=== PATIENT | female | born 1965 | race Caucasian/White ===

== ENCOUNTER 2017-08-03 06:16 | Emergency (ER) | payer BC ==
[2017-08-03 06:23] VITALS: TEMP 97
--- NOTE | 2017-08-03 07:25 | ED ---
General Adult HPI - General Chief complaint: Extremity Injury, Upper Stated complaint: FALL Time Seen by Provider: 08/03/17 07:12 Source: patient, RN notes reviewed Mode of arrival: ambulatory Limitations: no limitations - History of Present Illness Initial comments: 51-year-old female presented to the emergency room today with chief complaint of injury to the right hand that occurred approximately an hour and half ago. Patient states she was getting out of the truck when she tripped falling down onto the right hand. She states that she's had pain around the right MCP joint of the fifth digit. Patient denies any head injury or loss consciousness. States pain is worse with movements. Denies any other complaints currently. Patient denies any recent fever, chills, shortness of breath, chest pain, back pain, abdominal pain, nausea or vomiting, numbness or tingling, headaches or visual changes, or any other complaints. - Related Data Previous Rx's Medication Instructions Recorded Ibuprofen [Motrin] 600 mg PO Q6HR PRN #40 day 08/03/17 Allergies Allergy/AdvReac Type Severity Reaction Status Date / Time morphine Allergy Anaphylaxis Verified 08/03/17 08:13 Review of Systems ROS Statement: Those systems with pertinent positive or pertinent negative responses have been documented in the HPI. ROS Other: All systems not noted in ROS Statement are negative. Past Medical History Past Medical History: No Reported History History of Any Multi-Drug Resistant Organisms: None Reported Past Surgical History: Cholecystectomy Past Psychological History: No Psychological Hx Reported Smoking Status: Never smoker Past Alcohol Use History: None Reported Past Drug Use History: None Reported General Exam - General Exam Comments Initial Comments: General: The patient is awake and alert, in no distress, and does not appear acutely ill. Neck: The neck is supple, there is no tenderness or JVD. Musculoskeletal: Normal appearance of her right hand obvious deformity. Patient shows limited range of motion of the fifth digit due to pain. She is able to fully pronate supinate and flex and extend at the right wrist and right elbow. No bony tenderness in these areas. Mildly tender over the right fifth MCP joint. Sensations intact pulses equal bilaterally 2+. Neurological: A&O x 3. CN II-XII intact, There are no obvious motor or sensory deficits. Coordination appears grossly intact. Speech is normal. Skin: Skin is warm and dry and no rashes or lesions are noted. Psychiatric: Normal mood and affect. Limitations: no limitations Course Vital Signs 08/03/17 06:18 Temperature 97.0 F L Pulse Rate 99 Respiratory 18 Rate Blood Pressure 199/91 O2 Sat by Pulse 100 Oximetry Medical Decision Making - Medical Decision Making Patient's x-ray reviewed is negative for any acute fracture dislocation. Results were discussed with patient. Patient is advised follow-up with employee health. She is right-handed unable to work today due to pain. Patient placed in [place] wrap. Patient advised ice elevate and use ibuprofen for pain. Disposition Clinical Impression: Wrist sprain Disposition: HOME SELF-CARE Condition: Good Instructions: Wrist Sprain (ED) Additional Instructions: Please use medication as discussed. Please follow-up with employee health as discussed. Please return to emergency room if the symptoms increase or worsen or for any other concerns. Prescriptions: Ibuprofen [Motrin] 600 mg PO Q6HR PRN #40 day PRN Reason: Pain Referrals: Nereyda Torres MD [Primary Care Provider] - 1-2 days Time of Disposition: 08:14
--- NOTE | 2017-08-03 08:01 | XR ---
PROCEDURE: FILM RIGHT WRIST PROCEDURE: FILM RIGHT HAND HISTORY: 51-year-old female status post trauma with right upper extremity pain. COMPARISON: None TECHNIQUE: Frontal, lateral, oblique, and scaphoid views of the right wrist and frontal, lateral, and oblique views of the right hand were obtained. FINDINGS: Bony structures are intact. Joint spaces are preserved. Mild soft tissue swelling. IMPRESSION: Mild soft tissue swelling. No evidence of acute fracture or subluxation.
[2017-08-03 08:19] VITALS: BP 148/88; PULSE 88; RESP 16
== END 2017-08-03 08:27 | disposition home or self-care (01) ==
LOC: EC 06:16
DX: S63.501A Unspecified sprain of right wrist, initial encounter (principal); Z88.5 Allergy status to narcotic agent; V68.4XXA Person boarding or alighting a heavy transport vehicle injured in noncollision transport accident, initial encounter
CPT/HCPCS: 99283

== ENCOUNTER → 2017-09-15 | Outpatient (CLI) | payer BC, OTHER ==
--- NOTE | 2017-09-15 15:00 | CT ---
EXAMINATION TYPE: CT wrist RT wo con DATE OF EXAM: 09/15/2017 COMPARISON: NONE HISTORY: Right wrist pain CT DLP: 81.90 mGycm Automated exposure control for dose reduction was used. TECHNIQUE: Axial images 2 mm thick sections. Reconstructed images in the coronal and sagittal plane. Three-D reconstructed images performed separately on the ventricular computer by the technologist are reviewed. FINDINGS: No acute fractures are evident. Soft tissues appear normal. No abnormal collections are evident. Attention is paid to the level of the BB marking the medial ulnar aspect of the distal wrist. No unde rlying mass or abnormality is evident. This area appears to lie just below the pisiform. If soft tissue evaluation would be of benefit, MRI could be performed. This could further evaluate th e triangular fibrocartilage which is in the region of the BB. IMPRESSION: 1. NO ACUTE OR SUBACUTE OSSEOUS ABNORMALITY EVIDENT. 2. BB APPEARS TO LIE NEAR THE LEVEL OF THE TRIANGULAR FIBROCARTILAGE. CONSIDER MRI FOR SOFT TISSUE EV ALUATION.
== END | disposition home or self-care (01) ==
LOC: RADCTMAIN 12:51
PROVIDERS: ATTEND Internal Medicine
DX: M25.531 Pain in right wrist (principal)
CPT/HCPCS: 73200; Q9967

== ENCOUNTER 2019-06-17 06:27 | Emergency (ER) | payer BC ==
[2019-06-17 06:40] VITALS: BP 137/93; PULSE 101; RESP 28; TEMP 97.8
[2019-06-17] MEDS ORDERED: KETOROLAC 30 MG/ML 1 ML VIAL IVP STA (06:44)
[2019-06-17] MEDS ORDERED: ONDANSETRON 4 MG/2 ML VIAL IVP STA (06:44)
[2019-06-17] MEDS ORDERED: SODIUM CHLORIDE 0.9% 1,000 ML IV STA (06:44)
[2019-06-17] MEDS ORDERED: HYDROmorphone 0.5 MG/0.5 ML SYRINGE IVP STA (06:44)
[2019-06-17] MEDS ORDERED: SODIUM CHLORIDE 0.9% 500 ML 500 ML IV STA (06:44)
[2019-06-17 07:09] LABS: Basophils # (A) 0.1 k/uL (0-0.2); Basophils % (A) 1 %; Eosinophils # (A) 0.2 k/uL (0-0.7); Eosinophils % (A) 1 %; HCT 44.7 % (34.0-46.0); HGB 14.2 gm/dL (11.4-16.0); Lymphocytes % (A) 13 %; MCH 25.8 pg (25.0-35.0); MCHC 31.7 g/dL (31.0-37.0); MCV 81.5 fL (80.0-100.0); Mean Platelet Volume 9.5; Monocytes # (A) 0.8 k/uL (0-1.0); Monocytes % (A) 5 %; Neutrophils # (A) 11.9 k/uL (1.3-7.7); Neutrophils % (A) 78 %; Platelet Count 305 k/uL (150-450); RBC 5.49 m/uL (3.80-5.40); RDW 13.8 % (11.5-15.5); WBC 15.2 k/uL (3.8-10.6)
--- NOTE | 2019-06-17 07:16 | ED ---
Abdominal Pain HPI - General Chief Complaint: Abdominal Pain Stated Complaint: Hematuria Time Seen by Provider: 06/17/19 06:37 Source: patient, RN notes reviewed Mode of arrival: ambulatory Limitations: no limitations - History of Present Illness Initial Comments: This is a 53-year-old female presents emergency Department with chief complaint of severe right flank pain. Patient states it woke her up around 2 AM has had constant pain on alleviated with anything at this time. She does admit that she is very nauseated but no vomiting no diarrhea. Patient denies any dysuria but has noted hematuria. He has no history of kidney stones. Patient does admit that she's had a prior cholecystectomy denies fever, chills, chest or shortness of breath. Patient states that she does have an ALLERGY to morphine but has taken other pain meds in the past. Patient offers no other complaints at this time. - Related Data Previous Rx's Medication Instructions Recorded Ibuprofen [Motrin] 600 mg PO Q6HR PRN #40 day 08/03/17 Cephalexin [Keflex] 500 mg PO Q8HR #21 cap 06/17/19 Ibuprofen [Motrin] 600 mg PO Q8HR PRN #30 tab 06/17/19 Ondansetron Odt [Zofran Odt] 4 mg PO Q8HR PRN #10 tab 06/17/19 Phenazopyridine [Pyridium] 200 mg PO TID #6 tablet 06/17/19 Allergies Allergy/AdvReac Type Severity Reaction Status Date / Time morphine Allergy Anaphylaxis Verified 06/17/19 06:40 Review of Systems ROS Statement: Those systems with pertinent positive or pertinent negative responses have been documented in the HPI. ROS Other: All systems not noted in ROS Statement are negative. Past Medical History Past Medical History: No Reported History History of Any Multi-Drug Resistant Organisms: None Reported Past Surgical History: Cholecystectomy Past Psychological History: No Psychological Hx Reported Smoking Status: Never smoker Past Alcohol Use History: None Reported Past Drug Use History: None Reported General Exam Limitations: no limitations General appearance: alert, in no apparent distress, other (Patient appears uncomfortable.) Head exam: Present: atraumatic, normocephalic, normal inspection Eye exam: Present: normal appearance, PERRL, EOMI. Absent: scleral icterus, conjunctival injection, periorbital swelling ENT exam: Present: normal exam, mucous membranes moist Neck exam: Present: normal inspection, full ROM. Absent: tenderness, meningismus, lymphadenopathy Respiratory exam: Present: normal lung sounds bilaterally, other (Patient was tachpneic on triage secondary to pain). Absent: respiratory distress, wheezes, rales, rhonchi, stridor Cardiovascular Exam: Present: regular rate, normal rhythm, normal heart sounds. Absent: systolic murmur, diastolic murmur, rubs, gallop, clicks GI/Abdominal exam: Present: soft, tenderness (Minimal right-sided), normal bowel sounds. Absent: distended, guarding, rebound, rigid Back exam: Present: CVA tenderness (R). Absent: CVA tenderness (L) Neurological exam: Present: alert, oriented X3 Skin exam: Present: warm, dry, intact, normal color. Absent: rash Course Vital Signs 06/17/19 06:37 Temperature 97.8 F Pulse Rate 101 H Respiratory 28 H Rate Blood Pressure 137/93 O2 Sat by Pulse 97 Oximetry Medical Decision Making - Medical Decision Making 53-year-old female presented for right flank pain, hematuria. Labs, urinalysis and CT were obtained. CT does reveal gross hematuria with large amount of WBCs. Patient was given Rocephin emergency from, IV fluids, antiemetics and pain control. Patient states the pain is improved she does not want any further pain meds at this time. CT did not reveal any evidence of kidney stone. Patient may have recently passed a stone causing her symptoms. Patient we discharged on antibiotics, close follow-up and strict return parameters were discussed patient agrees - Lab Data Result diagrams: 06/17/19 06:50 06/17/19 06:50 Lab Results 06/17/19 06/17/19 06/17/19 Range/Units 06:40 06:50 06:50 WBC 15.2 H (3.8-10.6) k/uL RBC 5.49 H (3.80-5.40) m/uL Hgb 14.2 (11.4-16.0) gm/dL Hct 44.7 (34.0-46.0) % MCV 81.5 (80.0-100.0) fL MCH 25.8 (25.0-35.0) pg MCHC 31.7 (31.0-37.0) g/dL RDW 13.8 (11.5-15.5) % Plt Count 305 (150-450) k/uL Neutrophils % 78 % Lymphocytes % 13 % Monocytes % 5 % Eosinophils % 1 % Basophils % 1 % Neutrophils # 11.9 H (1.3-7.7) k/uL Lymphocytes # 2.0 (1.0-4.8) k/uL Monocytes # 0.8 (0-1.0) k/uL Eosinophils # 0.2 (0-0.7) k/uL Basophils # 0.1 (0-0.2) k/uL Sodium 136 L (137-145) mmol/L Potassium 4.5 (3.5-5.1) mmol/L Chloride 103 (98-107) mmol/L Carbon Dioxide 23 (22-30) mmol/L Anion Gap 10 mmol/L BUN 9 (7-17) mg/dL Creatinine 0.59 (0.52-1.04) mg/dL Est GFR (CKD-EPI)AfAm >90 (>60 ml/min/1.73 sqM) Est GFR (CKD-EPI)NonAf >90 (>60 ml/min/1.73 sqM) Glucose 106 H (74-99) mg/dL Calcium 9.8 (8.4-10.2) mg/dL Total Bilirubin 0.7 (0.2-1.3) mg/dL AST 24 (14-36) U/L ALT 13 (4-34) U/L Alkaline Phosphatase 73 (38-126) U/L Total Protein 7.6 (6.3-8.2) g/dL Albumin 4.2 (3.5-5.0) g/dL Amylase 32 (30-110) U/L Lipase 103 (23-300) U/L Urine Color Red Urine Appearance Cloudy H (Clear) Urine pH 5.5 (5.0-8.0) Ur Specific [place] 1.015 (1.001-1.035) Urine Protein 1+ H (Negative) Urine Glucose (UA) Negative (Negative) Urine Ketones Negative (Negative) Urine Blood Large H (Negative) Urine Nitrite Negative (Negative) Urine Bilirubin Negative (Negative) Urine Urobilinogen <2.0 (<2.0) mg/dL Ur Leukocyte Esterase Large H (Negative) Urine RBC >182 H (0-5) /hpf Urine WBC >182 H (0-5) /hpf Urine WBC Clumps Few H (None) /hpf Ur Squamous Epith Cells 4 (0-4) /hpf Urine Bacteria Occasional H (None) /hpf Disposition Clinical Impression: Flank pain, Hematuria, UTI (urinary tract infection) Disposition: HOME SELF-CARE Condition: Stable Instructions (If sedation given, give patient instructions): Urinary Tract Infection in Women (DC) Additional Instructions: Please return to the Emergency Department if symptoms worsen or any other concerns. Prescriptions: Cephalexin [Keflex] 500 mg PO Q8HR #21 cap Ibuprofen [Motrin] 600 mg PO Q8HR PRN #30 tab PRN Reason: Pain Phenazopyridine [Pyridium] 200 mg PO TID #6 tablet Ondansetron Odt [Zofran Odt] 4 mg PO Q8HR PRN #10 tab PRN Reason: Nausea Is patient prescribed a controlled substance at d/c from ED?: No Referrals: Nereyda Torres MD [Primary Care Provider] - 1-2 days Doug Gore MD [STAFF PHYSICIAN] - 1-2 days Time of Disposition: 08:31
[2019-06-17 07:19] LABS: ALT 13 U/L (4-34); African American GFR (CKD) >90 (>60 ml/min/1.73 sqM); Albumin 4.2 g/dL (3.5-5.0); Amylase 32 U/L (30-110); Anion Gap 10 mmol/L; Blood Urea Nitrogen 9 mg/dL (7-17); Calcium 9.8 mg/dL (8.4-10.2); Carbon Dioxide 23 mmol/L (22-30); Chloride 103 mmol/L (98-107); Glucose 106 mg/dL (74-99); Non-African American GFR(CKD) >90 (>60 ml/min/1.73 sqM); Sodium 136 mmol/L (137-145); Total Bilirubin 0.7 mg/dL (0.2-1.3); Total Protein 7.6 g/dL (6.3-8.2)
[2019-06-17 07:41] LABS: Potassium 4.5 mmol/L (3.5-5.1)
[2019-06-17 07:42] LABS: AST 24 U/L (14-36); Alkaline Phosphatase 73 U/L (38-126)
[2019-06-17 07:52] LABS: Appearance,Urine Cloudy (Clear); Bacteria,Urine Occasional /hpf; Bilirubin,Urine Negative (Negative); Blood,Urine Large (Negative); Color,Urine Red; Glucose,Urine (UA) Negative (Negative); Ketones,Urine Negative (Negative); Leukocyte Esterase,Urine Large (Negative); Nitrite,Urine Negative (Negative); PH, Urine 5.5 (5.0-8.0); Protein,Urine 1+ (Negative); RBC,Urine >182 /hpf (0-5); Specific Gravity,Urine 1.015 (1.001-1.035); Squamous Epithelial Cell,Urine 4 /hpf (0-4); Urobilinogen,Urine <2.0 mg/dL (<2.0); WBC,Urine >182 /hpf (0-5)
[2019-06-17] MEDS ORDERED: cefTRIAXone IN SWFI 1,000 MG/10 ML SYRINGE IVP STA (07:53)
--- NOTE | 2019-06-17 08:01 | CT ---
EXAMINATION TYPE: CT abdomen pelvis wo con DATE OF EXAM: 06/17/2019 COMPARISON: Previous study dated 08/06/2013 HISTORY: Right sided flank pain CT DLP: 1064 mGycm Automated exposure control for dose reduction was used. FINDINGS: There is minimal dependent atelectasis in the dependent portion of the lungs. There is no p leural or pericardial fluid. The heart is not enlarged. Within the abdomen, the gallbladder is been removed. Liver and spleen appear normal. Both adrenal glands appear normal. There is no evidence of hydronephrosis or nephrolithiasis. Limited views of the pancreas are normal. There is mild atheromatous calcification of the visualized arterial tree. There is no significant ret roperitoneal, iliac or inguinal adenopathy. There is a 3 cm cyst in the left ovary. The right ovary is normal. There is fibrotic changes within t he uterus. The bladder wall is slightly thickened but it is not distended. There is extensive diverticulosis of the left side of the colon. I do not see radiographic evidence o f diverticulitis. The appendix is normal. Small bowel loops are normal in caliber. There is no free fluid and no free air There is minor facet arthropathy in the lower lumbar facets.. IMPRESSION: 1. NO EVIDENCE OF HYDRONEPHROSIS OR NEPHROLITHIASIS. 2. LEFT OVARIAN CYST. 3. FIBROID UTERUS. 4. THICKENING OF THE BLADDER WALL MAY BE DUE TO LACK OF DISTENTION. PLEASE CORRELATE TO EXCLUDE CYSTI TIS. 5. EXTENSIVE DIVERTICULOSIS OF THE LEFT SIDE OF THE COLON.
[2019-06-17] MEDS ORDERED: ACET/COD 300 MG/30 MG STARTER PACK 6 TAB BTL PO STA (08:28)
[2019-06-17] MEDS ORDERED: PHENAZOPYRIDINE 200 MG TAB PO STA (08:28)
== END 2019-06-17 08:44 | disposition home or self-care (01) ==
LOC: EC 06:27
DX: N39.0 Urinary tract infection, site not specified (principal); R06.82 Tachypnea, not elsewhere classified; Z88.5 Allergy status to narcotic agent; Z90.49 Acquired absence of other specified parts of digestive tract
CPT/HCPCS: 99284; 96374; 96375 ×3; 96361; 36415; 80053; 82150; 83690; 85025; 81001; 74176; J2405; J0696; J1885; J1170

== ENCOUNTER 2019-08-11 02:22 | Emergency (ER) | payer BC ==
[2019-08-11] MEDS ORDERED: IPRATROPIUM-ALBUTEROL 3 ML NEB INHALATION STA (03:05)
[2019-08-11 03:20] LABS: Basophils % (A) 0 %; Eosinophils # (A) 0.1 k/uL (0-0.7); Eosinophils % (A) 1 %; HCT 43.6 % (34.0-46.0); HGB 14.3 gm/dL (11.4-16.0); Lymphocytes # (A) 1.5 k/uL (1.0-4.8); Lymphocytes % (A) 12 %; MCH 26.6 pg (25.0-35.0); MCHC 32.9 g/dL (31.0-37.0); MCV 80.8 fL (80.0-100.0); Mean Platelet Volume 9.1; Monocytes # (A) 0.6 k/uL (0-1.0); Monocytes % (A) 4 %; Neutrophils # (A) 10.5 k/uL (1.3-7.7); Neutrophils % (A) 81 %; Platelet Count 323 k/uL (150-450); RBC 5.39 m/uL (3.80-5.40); RDW 13.4 % (11.5-15.5)
[2019-08-11 03:39] LABS: D-Dimer 0.35 mg/L FEU (<0.60); INR 0.9 (<1.2); Partial Thromboplastin Time 24.9 sec (22.0-30.0); Prothrombin Time 9.4 sec (9.0-12.0)
[2019-08-11 03:45] LABS: ALT 14 U/L (4-34); AST 19 U/L (14-36); African American GFR (CKD) >90 (>60 ml/min/1.73 sqM); Albumin 4.2 g/dL (3.5-5.0); Alkaline Phosphatase 79 U/L (38-126); Anion Gap 10 mmol/L; Blood Urea Nitrogen 9 mg/dL (7-17); Calcium 9.5 mg/dL (8.4-10.2); Carbon Dioxide 22 mmol/L (22-30); Chloride 107 mmol/L (98-107); Glucose 169 mg/dL (74-99); Non-African American GFR(CKD) >90 (>60 ml/min/1.73 sqM); Potassium 3.7 mmol/L (3.5-5.1); Sodium 139 mmol/L (137-145); Total Bilirubin 0.2 mg/dL (0.2-1.3); Total Protein 7.5 g/dL (6.3-8.2)
--- NOTE | 2019-08-11 04:03 | XR ---
EXAMINATION TYPE: XR chest 1V portable DATE OF EXAM: 08/11/2019 COMPARISON: NONE HISTORY: Short of breath TECHNIQUE: Single view FINDINGS: There is no heart failure nor confluent pneumonic infiltrate. Heart size is normal. There a re chest leads. Costophrenic angles are clear. IMPRESSION: No active cardiopulmonary disease. Normal heart.
[2019-08-11] MEDS ORDERED: ALBUTEROL HFA INHALER INHALATION STA (04:04)
--- NOTE | 2019-08-11 04:04 | ED ---
SOB HPI - General Chief Complaint: Shortness of Breath Stated Complaint: Vomitting Time Seen by Provider: 08/11/19 02:45 Source: patient Mode of arrival: ambulatory Limitations: no limitations - History of Present Illness Initial Comments: This patient is a 53-year-old woman who states that she has history of ALLERGY- induced asthma that usually flares at this time of year. She states that for the past few days she has had coughing, chest tightness. She had some leftover Augmentin that she tried using without much relief. She now is also having bi lateral rib pain with the cough. MD Complaint: shortness of breath, cough, chest pain -: days(s) Quality: aching Consistency: constant Improves With: nothing Worsens With: coughing Known History Of: asthma Treatments Prior to Arrival: other - Related Data Home Oxygen Therapy: No Previous Rx's Medication Instructions Recorded Ibuprofen [Motrin] 600 mg PO Q6HR PRN #40 day 08/03/17 Cephalexin [Keflex] 500 mg PO Q8HR #21 cap 06/17/19 Ibuprofen [Motrin] 600 mg PO Q8HR PRN #30 tab 06/17/19 Ondansetron Odt [Zofran Odt] 4 mg PO Q8HR PRN #10 tab 06/17/19 Phenazopyridine [Pyridium] 200 mg PO TID #6 tablet 06/17/19 Azithromycin [Zithromax Z-pack] 250 mg PO DIRECTED #6 tab 08/11/19 Allergies Allergy/AdvReac Type Severity Reaction Status Date / Time morphine Allergy Anaphylaxis Verified 06/17/19 06:40 Review of Systems ROS Statement: Those systems with pertinent positive or pertinent negative responses have been documented in the HPI. ROS Other: All systems not noted in ROS Statement are negative. Constitutional: Denies: fever, chills, weakness ENT: Reports: congestion. Denies: throat pain Respiratory: Reports: as per HPI, cough, dyspnea. Denies: wheezes Cardiovascular: Reports: as per HPI, chest pain, dyspnea on exertion. Denies: palpitations, orthopnea, edema, syncope Gastrointestinal: Denies: abdominal pain, nausea, vomiting Genitourinary: Denies: dysuria, hematuria Musculoskeletal: Denies: back pain Skin: Denies: rash Neurological: Denies: headache, weakness Past Medical History Past Medical History: No Reported History, Pneumonia History of Any Multi-Drug Resistant Organisms: None Reported Past Surgical History: Cholecystectomy, Orthopedic Surgery Past Psychological History: No Psychological Hx Reported Smoking Status: Former smoker Past Alcohol Use History: None Reported Past Drug Use History: None Reported General Exam Limitations: no limitations General appearance: alert, in no apparent distress Head exam: Present: atraumatic, normocephalic Eye exam: Present: normal appearance. Absent: scleral icterus, conjunctival injection Respiratory exam: Present: wheezes. Absent: respiratory distress, rales, rhonchi, stridor, accessory muscle use, decreased breath sounds Cardiovascular Exam: Present: regular rate, normal rhythm, normal heart sounds. Absent: systolic murmur, diastolic murmur, rubs, gallop GI/Abdominal exam: Present: soft. Absent: distended, tenderness, guarding, rebound, rigid, mass Extremities exam: Present: normal inspection, normal capillary refill. Absent: pedal edema, calf tenderness Back exam: Present: normal inspection. Absent: CVA tenderness (R), CVA tenderness (L) Neurological exam: Present: alert Skin exam: Present: warm, dry, intact, normal color. Absent: rash Course Vital Signs 08/11/19 08/11/19 08/11/19 02:25 02:50 03:15 Temperature 97.9 F Pulse Rate 99 86 Respiratory 20 20 40 H Rate Blood Pressure 201/100 154/93 O2 Sat by Pulse 99 100 Oximetry 08/11/19 08/11/19 08/11/19 03:20 03:30 03:40 Temperature Pulse Rate 84 84 82 Respiratory 27 H 17 37 H Rate Blood Pressure 154/93 154/93 154/93 O2 Sat by Pulse 99 99 97 Oximetry 08/11/19 08/11/19 08/11/19 03:50 04:00 04:10 Temperature Pulse Rate 81 84 83 Respiratory 26 H 14 20 Rate Blood Pressure 154/93 154/93 O2 Sat by Pulse 99 99 99 Oximetry 08/11/19 08/11/19 08/11/19 04:30 04:40 04:50 Temperature Pulse Rate 87 79 79 Respiratory 18 17 13 Rate Blood Pressure O2 Sat by Pulse 98 100 100 Oximetry 08/11/19 08/11/19 08/11/19 05:00 05:10 05:20 Temperature 97.8 F Pulse Rate 74 86 Respiratory 22 27 H Rate Blood Pressure 177/100 161/109 177/100 O2 Sat by Pulse 100 100 Oximetry 08/11/19 08/11/19 08/11/19 05:30 05:40 05:50 Temperature Pulse Rate 77 75 87 Respiratory 6 L 18 12 Rate Blood Pressure 177/100 177/100 177/100 O2 Sat by Pulse 100 100 Oximetry 08/11/19 08/11/19 06:00 06:10 Temperature Pulse Rate 79 73 Respiratory 21 11 L Rate Blood Pressure 177/100 169/99 O2 Sat by Pulse 98 98 Oximetry Medical Decision Making - Medical Decision Making Patient's 53-year-old woman presenting with cough and dyspnea though no fever. She does have history of bronchitis annually at about this time here. She is feeling markedly better following albuterol treatment here and does wish to go home. She will be discharged with the MDI and I did also prescribe azithromycin should she develop fever or thick sputum. We discussed appropriate further care and follow-up and the return parameters. Also discussed possibility of code infection and she is going to isolate. - Lab Data Result diagrams: 08/11/19 02:52 08/11/19 02:52 Lab Results 08/11/19 08/11/19 08/11/19 Range/Units 02:52 02:52 02:52 WBC 13.0 H (3.8-10.6) k/uL RBC 5.39 (3.80-5.40) m/uL Hgb 14.3 (11.4-16.0) gm/dL Hct 43.6 (34.0-46.0) % MCV 80.8 (80.0-100.0) fL MCH 26.6 (25.0-35.0) pg MCHC 32.9 (31.0-37.0) g/dL RDW 13.4 (11.5-15.5) % Plt Count 323 (150-450) k/uL Neutrophils % 81 % Lymphocytes % 12 % Monocytes % 4 % Eosinophils % 1 % Basophils % 0 % Neutrophils # 10.5 H (1.3-7.7) k/uL Lymphocytes # 1.5 (1.0-4.8) k/uL Monocytes # 0.6 (0-1.0) k/uL Eosinophils # 0.1 (0-0.7) k/uL Basophils # 0.0 (0-0.2) k/uL PT 9.4 (9.0-12.0) sec INR 0.9 (<1.2) APTT 24.9 (22.0-30.0) sec D-Dimer 0.35 (<0.60) mg/L FEU Sodium 139 (137-145) mmol/L Potassium 3.7 (3.5-5.1) mmol/L Chloride 107 (98-107) mmol/L Carbon Dioxide 22 (22-30) mmol/L Anion Gap 10 mmol/L BUN 9 (7-17) mg/dL Creatinine 0.57 (0.52-1.04) mg/dL Est GFR (CKD-EPI)AfAm >90 (>60 ml/min/1.73 sqM) Est GFR (CKD-EPI)NonAf >90 (>60 ml/min/1.73 sqM) Glucose 169 H (74-99) mg/dL Lactic Ac Sepsis Rflx Plasma Lactic Acid Esteban (0.7-2.0) mmol/L Calcium 9.5 (8.4-10.2) mg/dL Total Bilirubin 0.2 (0.2-1.3) mg/dL AST 19 (14-36) U/L ALT 14 (4-34) U/L Alkaline Phosphatase 79 (38-126) U/L Troponin I (0.000-0.034) ng/mL NT-Pro-B Natriuret Pep pg/mL Total Protein 7.5 (6.3-8.2) g/dL Albumin 4.2 (3.5-5.0) g/dL 08/11/19 08/11/19 08/11/19 Range/Units 02:52 02:52 02:52 WBC (3.8-10.6) k/uL RBC (3.80-5.40) m/uL Hgb (11.4-16.0) gm/dL Hct (34.0-46.0) % MCV (80.0-100.0) fL MCH (25.0-35.0) pg MCHC (31.0-37.0) g/dL RDW (11.5-15.5) % Plt Count (150-450) k/uL Neutrophils % % Lymphocytes % % Monocytes % % Eosinophils % % Basophils % % Neutrophils # (1.3-7.7) k/uL Lymphocytes # (1.0-4.8) k/uL Monocytes # (0-1.0) k/uL Eosinophils # (0-0.7) k/uL Basophils # (0-0.2) k/uL PT (9.0-12.0) sec INR (<1.2) APTT (22.0-30.0) sec D-Dimer (<0.60) mg/L FEU Sodium (137-145) mmol/L Potassium (3.5-5.1) mmol/L Chloride (98-107) mmol/L Carbon Dioxide (22-30) mmol/L Anion Gap mmol/L BUN (7-17) mg/dL Creatinine (0.52-1.04) mg/dL Est GFR (CKD-EPI)AfAm (>60 ml/min/1.73 sqM) Est GFR (CKD-EPI)NonAf (>60 ml/min/1.73 sqM) Glucose (74-99) mg/dL Lactic Ac Sepsis Rflx Plasma Lactic Acid Esteban 2.1 H* (0.7-2.0) mmol/L Calcium (8.4-10.2) mg/dL Total Bilirubin (0.2-1.3) mg/dL AST (14-36) U/L ALT (4-34) U/L Alkaline Phosphatase (38-126) U/L Troponin I <0.012 (0.000-0.034) ng/mL NT-Pro-B Natriuret Pep 42 pg/mL Total Protein (6.3-8.2) g/dL Albumin (3.5-5.0) g/dL 08/11/19 Range/Units 04:07 WBC (3.8-10.6) k/uL RBC (3.80-5.40) m/uL Hgb (11.4-16.0) gm/dL Hct (34.0-46.0) % MCV (80.0-100.0) fL MCH (25.0-35.0) pg MCHC (31.0-37.0) g/dL RDW (11.5-15.5) % Plt Count (150-450) k/uL Neutrophils % % Lymphocytes % % Monocytes % % Eosinophils % % Basophils % % Neutrophils # (1.3-7.7) k/uL Lymphocytes # (1.0-4.8) k/uL Monocytes # (0-1.0) k/uL Eosinophils # (0-0.7) k/uL Basophils # (0-0.2) k/uL PT (9.0-12.0) sec INR (<1.2) APTT (22.0-30.0) sec D-Dimer (<0.60) mg/L FEU Sodium (137-145) mmol/L Potassium (3.5-5.1) mmol/L Chloride (98-107) mmol/L Carbon Dioxide (22-30) mmol/L Anion Gap mmol/L BUN (7-17) mg/dL Creatinine (0.52-1.04) mg/dL Est GFR (CKD-EPI)AfAm (>60 ml/min/1.73 sqM) Est GFR (CKD-EPI)NonAf (>60 ml/min/1.73 sqM) Glucose (74-99) mg/dL Lactic Ac Sepsis Rflx Y Plasma Lactic Acid Esteban (0.7-2.0) mmol/L Calcium (8.4-10.2) mg/dL Total Bilirubin (0.2-1.3) mg/dL AST (14-36) U/L ALT (4-34) U/L Alkaline Phosphatase (38-126) U/L Troponin I (0.000-0.034) ng/mL NT-Pro-B Natriuret Pep pg/mL Total Protein (6.3-8.2) g/dL Albumin (3.5-5.0) g/dL - EKG Data -: EKG Interpreted by Vt EKG shows normal: sinus rhythm, axis (Normal), intervals (Normal), QRS complexes (Normal), ST-T waves (Normal) Rate: normal (Rate 91 bpm) Interpretation: normal EKG Disposition Clinical Impression: Bronchitis Disposition: HOME SELF-CARE Condition: Good Instructions (If sedation given, give patient instructions): Acute Bronchitis (ED) Prescriptions: Azithromycin [Zithromax Z-pack] 250 mg PO DIRECTED #6 tab Is patient prescribed a controlled substance at d/c from ED?: No Referrals: Nereyda Torres MD [Primary Care Provider] - 1-2 days
[2019-08-11] MEDS ORDERED: AZITHROMYCIN 500 MG TAB PO STA (04:05)
[2019-08-11] MEDS ORDERED: SODIUM CHLORIDE 0.9% 500 ML 500 ML IV STA (04:59)
[2019-08-11] MEDS ORDERED: SODIUM CHLORIDE 0.9% 1,000 ML IV ONE (04:59)
[2019-08-11 05:18] VITALS: TEMP 97.8
[2019-08-11 06:21] VITALS: BP 169/99; PULSE 73; RESP 11
== END 2019-08-11 06:35 | disposition home or self-care (01) ==
LOC: EC 02:22
DX: J40 Bronchitis, not specified as acute or chronic (principal); Z88.5 Allergy status to narcotic agent; Z87.891 Personal history of nicotine dependence
CPT/HCPCS: 36415; 71045; 80053; 83605; 83880; 84484; 85025; 85379; 85610; 85730; 87502; 93005; 96360; 96361; 99285